=== PATIENT | female | born 1970 | race Caucasian/White ===

== ENCOUNTER 2016-08-07 19:13 | Emergency (ER) | payer BC ==
--- NOTE | 2016-08-07 19:34 | UCPHY ---
H & P Patient Type: New HPI/ROS: CHIEF COMPLAINT: Pruritic scalp, right-sided facial swelling and pain. HISTORY OF PRESENT ILLNESS: The patient is a 46-year-old female who presents with right lower facial swelling and pain along with forehead rash that began at 1200 today (8 hours ago). She admits to having a pruritic scalp for the past 2 days, that has slowly been worsening over that period of time. She denies headache, fever, vomiting, diarrhea, or other complaints. REVIEW OF SYSTEMS: Constitutional: No fever, no chills. Eyes: No diplopia. No involvement of the nose ENT: No sore throat. Past Medical/Surgical History: Hysterectomy, appendectomy. Social History: Nonsmoker. Physical Exam: General Appearance: Alert, no distress. Afebrile. Normal phonation. No respiratory distress. Eyes: Pupils equal and round no pallor or injection. No icterus ENT, Mouth: Mucous membranes moist. Pharynx not erythematous and without exudate. TM Clear. Neurological: Ox3. No motor weakness. Sensation intact. Gait nl. Skin: Warm and dry, erythematous rash to forehead. Musculoskeletal: No joint swelling. Extremities: No edema. Homans sign negative. No cords. Constitutional: Initial Vital Signs Temperature (C) 36.6 C 08/07/16 19:33 Heart Rate 86 08/07/16 19:33 Respiratory Rate 16 08/07/16 19:33 Blood Pressure 171/110 H 08/07/16 19:33 O2 Sat (%) 93 08/07/16 19:33 O2 Delivery Mode Room Air Allergies/Adverse Reactions: codeine [Codeine] Allergy (Verified 08/07/16 19:36) morphine Allergy (Verified 08/07/16 19:36) Home Medications: Medication Instructions Recorded Acyclovir 800 mg PO 5XD #35 tab 08/07/16 Allopurinol 08/07/16 Docusate Sodium [Colace 100 MG (*)] 100 mg PO BID #28 cap 08/07/16 Potassium Citrate 08/07/16 oxyCODONE HCL/ACETAMINOPHEN 1 - 2 each PO Q6 PRN #20 tablet 08/07/16 [Percocet 5-325 mg Tablet] Medical Decision Making ED Course/Re-evaluation: 46-year-old female presents with forehead rash and right facial pain/swelling that began midday today. She has had generalized pruritic scalp over the past week and noticed a tingly feeling around her jaw yesterday. Her story and my exam are consistent with shingles. She will be treated with Acyclovir. I checked the [place] Prescription Drug Monitoring Program and the patient does not have a prescription history. She prefers Percocet over Vicodin and I will give her a prescription for this. She understands that she is very contagious for the next 2 weeks and needs to use her own towel, wash her hands frequently, etc. She will follow up with her primary care provider for reevaluation. Differential Diagnosis: Diagnostic considerations include, but are not limited to, the following: Erysipelas, cellulitis, shingles, contact dermatitis Departure - Departure Disposition: Home, Routine, Self-Care Clinical Impression: Shingles Qualifiers: Herpes zoster complications: without complications Qualified Code(s): B02.9 - Zoster without complications Condition: Good Instructions: Shingles (ED) Additional Instructions: Take Acyclovir as prescribed. Take Percocet as prescribed when needed for pain. Take Colace to avoid opiate-related constipation. You are highly contagious. Contain yourself to one bathroom for 2 weeks or until your lesions have crusted over. Use your own towel and wash your hands frequently. Follow up with your primary care provider next week for reevaluation. Return for any serious worsening of condition. Referrals: Hillary Martinez MD [Primary Care Provider] - As per Instructions Prescriptions: Acyclovir 800 mg PO 5XD #35 tab Docusate Sodium [Colace 100 MG (*)] 100 mg PO BID #28 cap oxyCODONE HCL/ACETAMINOPHEN [Percocet 5-325 mg Tablet] 1 - 2 each PO Q6 PRN #20 tablet PRN Reason: moderate pain - PQRS PQRS Measurement: N/A. Report Scribed for: Jesse Lawson Report Scribed by: Cesar Bernal Date of Report: 08/07/16 Time of Report: 19:34
[2016-08-07 19:36] VITALS: BP 171/110; PULSE 86; RESP 16; TEMP 97.9; O2SAT 93
== END 2016-08-07 20:19 | disposition home or self-care (01) ==
LOC: CED 19:13
DX: B02.9 Zoster without complications (principal)
CPT/HCPCS: G0463-PO